=== PATIENT | female | born 1995 | race Caucasian/White ===

== ENCOUNTER → 2017-08-03 | Outpatient (CLI) | payer MEDICAID | LOC: LAB 16:12 | DX: N92.6 Irregular menstruation, unspecified (principal) ==

== ENCOUNTER 2021-05-17 14:50 | Emergency (ER) | payer MEDICAID ==
[~2021-05-17] VITALS: Ht 340.4 cm; Wt 168.2 kg
[2021-05-17 15:09] VITALS: BP 133/76
== END 2021-05-17 16:00 | disposition home or self-care (01) ==
LOC: ED 14:50
DX: B34.9 Viral infection, unspecified (principal); Z20.822 Contact with and (suspected) exposure to COVID-19

== ENCOUNTER → 2024-03-25 | Outpatient (REF) | payer MEDICARE | LOC: LAB 12:41 | DX: Z20.822 Contact with and (suspected) exposure to COVID-19 (principal) ==